=== PATIENT | male | born 1985 | race African-American/Black ===

== ENCOUNTER 2018-02-10 15:25 | Emergency (ER) | payer MEDICAID, OTHER ==
[~2018-02-10] VITALS: Ht 188 cm; Wt 170.1 kg
[2018-02-10 15:32] VITALS: BP 145/101
== END 2018-02-10 17:12 | disposition home or self-care (01) ==
LOC: ER 15:25
DX: G51.0 Bell's palsy (principal); I10 Essential (primary) hypertension
CPT/HCPCS: 70450

== ENCOUNTER 2019-06-16 12:19 | Emergency (ER) | payer MEDICAID, OTHER ==
[~2019-06-16] VITALS: Ht 188 cm; Wt 156.5 kg
[2019-06-16 12:25] VITALS: BP 148/84
== END 2019-06-16 20:05 | disposition left against medical advice (07) ==
LOC: ER 12:19
DX: R07.89 Other chest pain (principal); Z53.21 Procedure and treatment not carried out due to patient leaving prior to being seen by health care provider
CPT/HCPCS: 71046; 93005